=== PATIENT | female | born 2000 | race African-American/Black ===

== ENCOUNTER 2021-10-11 07:25 | Emergency (ER) | payer OTHER ==
[~2021-10-11] VITALS: Ht 170.2 cm; Wt 75.0 kg
[2021-10-11] MEDS ORDERED: ALBUTEROL SULFATE HFA 90 MCG/PUFF 8 GM INHALER IH ONE (12:15)
[2021-10-11 12:25] VITALS: BP 110/68
== END 2021-10-11 12:32 | disposition home or self-care (01) ==
LOC: EMS 07:25
DX: J98.01 Acute bronchospasm (principal)
CPT/HCPCS: 71045; 94640; 99283; J3535